=== PATIENT | female | born 1970 | race African-American/Black ===

== ENCOUNTER 2019-06-01 06:36 | Day surgery (SDC) | payer OTHER ==
[2019-05-29 14:21] VITALS: BMI 34.0
[2019-06-01 08:01] LABS: #Eosinphils 0.2 thou/uL (0.0-0.7); #Lymphocytes 3.5 thou/uL (1.20-3.40); #Monocytes 0.8 thou/uL (0.11-0.59); #Neutrophils 4.1 thou/uL (1.40-6.50); %Basophils 0.2 % (0.0-1.0); %Eosinophils 1.8 % (0.0-10.0); %Monocytes 8.9 % (0.0-10.0); %Neutrophils 48.1 % (42.0-75.0); Hemoglobin 12.2 g/dL (12.0-16.0); Mean Corpuscular HGB CONC 33.2 g/dL (32.0-36.0); Mean Corpuscular Hemoglobin 28.1 pg (27.0-31.0); Mean Corpuscular Volume 84.6 fL (78.0-98.0); Mean Platelet Volume 8.5 fL (7.4-10.4); Platelet Count 238 thou/uL (130-400); Red Blood Cell (RBC) Count 4.34 mill/uL (4.20-5.40); White Blood Cell (WBC) Count 8.6 thou/uL (4.8-10.8)
[2019-06-01 08:20] LABS: Anion Gap 11 mmol/L (10-20); BUN (Urea Nitrogen) 10 mg/dL (7.0-18.7); Calc. Creatinine Clearance 150 mL/min (70-130); Calcium 9.3 mg/dL (7.8-10.44); Carbon Dioxide 26 mmol/L (22-29); Chloride 104 mmol/L (98-107); Estimated GFR-MDRD Greater than 90; Glucose 100 mg/dL (70-105); Potassium 3.3 mmol/L (3.5-5.1); Sodium 138 mmol/L (136-145)
[2019-06-01] MEDS ORDERED: Clindamycin/D5W 900 mg/50 ml Premix Bag ONE ×2 (08:38→08:59)
[2019-06-01] MEDS ORDERED: Levofloxacin 500 mg/D5W 100 ml Premix Bag ONE (08:38)
[2019-06-01] MEDS ORDERED: Sodium Chloride 0.9% 10 ML ONE (08:40)
[2019-06-01] MEDS ORDERED: Fentanyl 100 MCG/2 ML VIAL ONE ×5 (08:54→12:02)
[2019-06-01] MEDS ORDERED: Dexamethasone 20 MG/5 ML VIAL ONE (10:05)
[2019-06-01] MEDS ORDERED: PROPOFOL 200 MG/20 ML VIAL ONE (10:05)
[2019-06-01] MEDS ORDERED: Lidocaine 1% PF 5 ML VIAL ONE (10:05)
[2019-06-01] MEDS ORDERED: Rocuronium Bromide 10 MG/ML (10ML VIAL) ONE (10:05)
[2019-06-01] MEDS ORDERED: Glycopyrrolate 0.2 MG/ML 5 ML SYRINGE ONE (10:05)
[2019-06-01] MEDS ORDERED: HYDROmorphone 0.5 MG/0.5 ML SYRINGE ONE ×2 (10:26→10:51)
[2019-06-01] MEDS ORDERED: Ondansetron PF 4 MG/2 ML Vial ONE (10:26)
[2019-06-01] MEDS ORDERED: Albuterol Sulfate 1.25 MG/3 ML NEB ONE (10:29)
--- NOTE | 2019-06-01 10:37 | OP ---
DATE OF PROCEDURE: 06/01/2019 TRACK LINER OPERATOR: Mell Norton PA-C PROCEDURES PERFORMED: Anterior cervical diskectomy C5-C6 and C6-C7, interbody arthrodesis, intervertebral biomechanical device, local morselized autograft, demineralized bone matrix, and anterior titanium instrumentation C5-C6 and C6-C7. DESCRIPTION OF PROCEDURE: The patient was brought to the operating room and intubated. She was positioned supine with head in modest extension on gel-filled donut. A longitudinal incision was made in the right precervical area and dissected medial to the sternocleidomastoid muscle, identified the anterior cervical spinal, and the level was confirmed by x-ray. We debrided the anterior osteophytes, placed distraction across the disk spaces, and completely decompressed the C5-C6 and C6-C7 disks. The bony endplates were then decorticated for the purpose of arthrodesis and appropriate-sized intervertebral biomechanical PEEK device was brought into the field. It was filled with demineralized bone matrix and local morselized autograft, and tapped in place securely at C5-C6 and C6-C7. Next, an anterior plate was brought into the field and secured to C5, C6, and C7 using two 14 mm screws at each level. The wound was then extensively irrigated. MAC hemostasis was secured and the wound was closed in anatomic layers. Job ID: [id number]
[2019-06-01] MEDS ORDERED: Promethazine HCl 25 MG/ML VIAL ONE (12:44)
[2019-06-01] MEDS ORDERED: Morphine 4 MG/ML VIAL ONE (12:55)
[2019-06-01] MEDS ORDERED: Morphine 2 MG/ML SYRINGE ONE ×3 (13:21→14:45)
[2019-06-01] MEDS ORDERED: tiZANidine HCl 4 MG TAB ONE (14:22)
== END 2019-06-01 15:40 | disposition home or self-care (01) ==
LOC: SDC 06:36
PROVIDERS: ATTEND Neurological Surgery
PROC: 0RT30ZZ Resection of Cervical Vertebral Disc, Open Approach (ICD-10-PCS; principal; 2019-06-01)
PROC: 0RG2070 Fusion of 2 or more Cervical Vertebral Joints with Autologous Tissue Substitute, Anterior Approach, Anterior Column, Open Approach (ICD-10-PCS; principal; 2019-06-01)
PROC: 0RG20A0 Fusion of 2 or more Cervical Vertebral Joints with Interbody Fusion Device, Anterior Approach, Anterior Column, Open Approach (ICD-10-PCS; principal; 2019-06-01)
DX: M54.12 Radiculopathy, cervical region (principal); I10 Essential (primary) hypertension; J45.909 Unspecified asthma, uncomplicated; M19.90 Unspecified osteoarthritis, unspecified site; Z79.899 Other long term (current) drug therapy; Z88.0 Allergy status to penicillin; Z91.040 Latex allergy status; Z91.048 Other nonmedicinal substance allergy status
CPT/HCPCS: 76000; 80048; 85025; 93005; 93010; C1713; C1776; J1100; J1170; J1956; J2001; J2270; J2405; J2550; J2704; J3010; J3490